=== PATIENT | male | born 1945 | race African-American/Black ===

== ENCOUNTER 2016-09-14 21:30 | Emergency (ER) | payer SELFPAY ==
[2016-09-14] MEDS ORDERED: Sodium Chloride 0.9% 500 ML ONE (22:01)
[2016-09-14] MEDS ORDERED: Acetaminophen 325 MG TAB ONE (22:01)
[2016-09-14 22:18] LABS: #Basophils 0.1 thou/uL (0.0-0.2); #Eosinphils 0.2 thou/uL (0.0-0.7); #Lymphocytes 0.7 thou/uL (1.20-3.40); #Monocytes 0.8 thou/uL (0.11-0.59); #Neutrophils 4.4 thou/uL (1.40-6.50); %Basophils 1.2 % (0.0-1.0); %Eosinophils 2.6 % (0.0-10.0); %Lymphocytes 11.9 % (21.0-51.0); %Monocytes 12.4 % (0.0-10.0); Hematocrit 40.5 % (42.0-52.0); Mean Platelet Volume 6.8 fL (7.4-10.4); Red Blood Cell (RBC) Count 4.86 mill/uL (4.70-6.10); White Blood Cell (WBC) Count 6.1 thou/uL (4.8-10.8)
[2016-09-14 22:33] LABS: Bilirubin Negative (Negative); Blood, Urine Negative (Negative); Glucose, Urine (Dipstick) Negative (Negative); Ketone, Urine Negative (Negative); Nitrite Negative (Negative); Protein, Urine (Dipstick) Negative (Neg-Trace)
[2016-09-14 22:36] LABS: Anion Gap 17 mmol/L (10-20); BUN (Urea Nitrogen) 15 mg/dL (8.4-25.7); Calc. Creatinine Clearance 0 mL/min (70-130); Carbon Dioxide 21 mmol/L (23-31); Chloride 101 mmol/L (98-107); Estimated GFR-MDRD 57
--- NOTE | 2016-09-14 23:27 | CT ---
CT BRAIN WITHOUT CONTRAST: History: Headache, fever. FINDINGS: No evidence of acute infarction, midline shift, or abnormal extraaxial fluid collections are seen. The ventricular size is appropriate and the basilar cisterns are patent. There is mucosal disease i n the paranasal sinuses. The bony calvarium is intact. IMPRESSION: No CT evidence of acute intracranial process. POS: [facility]
--- NOTE | 2016-09-14 23:36 | RAD ---
PORTABLE CHEST: Date: 09-14-16 Time: 10:03 p.m. History: Headache, fever. FINDINGS: Comparison is made with the exam of 09-28-14. The heart size is borderline. The lungs are expanded without areas of confluent areas of consolidat ion, pneumothorax or pleural effusions. IMPRESSION: No radiographic evidence of acute cardiopulmonary process. POS: [facility]
--- NOTE | 2016-09-14 23:39 | PICIS ---
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 Width 12.7 %, Range (11.5-14.5), Platelet Count 170 thou/uL, Range (130-400), *Mean Platelet Volume 6.8 - L fL, Range (7.4-10.4), %Neutrophils 71.9 %, Range (42.0-75.0), *%Lymphocytes 11.9 - L %, Range (21.0-51.0), *%Monocytes 12.4 - H %, Range (0.0-10.0), %Eosinophils 2.6 %, Range (0.0-10.0), *%Basophils 1.2 - H %, Range (0.0-1.0), #Neutrophils 4.4 thou/uL, Range (1.40-6.50), *#Lymphocytes 0.7 - L thou/uL, Range (1.20-3.40), *#Monocytes 0.8 - H thou/uL, Range (0.11-0.59), #Eosinphils 0.2 thou/uL, Range (0.0-0.7), #Basophils 0.1 thou/uL, Range (0.0-0.2). (22:20 JOHE) Urinalysis w/ Rflx Microscopic Collection DT: [place] Sep 14, 2016 22:30, Color Yellow , Range (Yellow), Clarity Clear , Range (Clear), Specific [place], Urine 1.020 , Range (1.005-1.030), pH, Urine 6.5 , Range (5.0-9.0), Leukocyte Negative , Range (Negative), Nitrite Negative , Range (Negative), Protein, Urine (Dipstick) Negative mg/dL, Range (Neg-Trace), Glucose, Urine (Dipstick) Negative mg/dL, Range (Negative), Ketone, Urine Negative mg/dL, Range (Negative), Urobilinogen 1.0 mg/dL, Range (0.2-1.0), Bilirubin Negative , Range (Negative), Blood, Urine Negative , Range (Negative). (22:38 JOHE) Basic Metabolic Panel Collection DT: [place] Sep 14, 2016 22:16, *Sodium 135 - L mmol/L, Range (136-145), Potassium 3.9 mmol/L, Range (3.5-5.1), Chloride 101 mmol/L, Range (98-107), *Carbon Dioxide 21 - L mmol/L, Range (23-31), Anion Gap 17 mmol/L, Range (10-20), BUN (Urea Nitrogen) 15 mg/dL, Range (8.4-25.7), *Creatinine 1.46 - H mg/dL, Range (0.7-1.3), Estimated GFR-MDRD 57 , Reference Range for Estimated GFR: Greater than 90, mL/min/1.73 m2 NOTE: The MDRD equation has not been validated for use, with the elderly (over 70 years of age), women, patients with, serious comorbid condition or persons with extremes of body size, muscle, mass, or nutritional status. , Glucose 97 mg/dL, Range (83-110), Calcium 9.0 mg/dL, Range (7.8-10.44). (22:40 JOHE) RBC Sedimentation Rate (ESR) Collection DT: [place] Sep 14, 2016 22:16, RBC Sedimentation Rate (ESR) 10 mm/hr, Range (0-10). (22:52 JOHE) MICROBIOLOGY: Influenza A&B Ag Screen: [id number] Collection &a-1R&a+25V*p+0X*v5516F*c152B*c15G*c2P*p-0X&a-25V&a+1R Name: Nhi Jiménez : M70 MedRec: [id number] AcctNum: [id number] Prepared: ThuSep 15, 2016 00:09 by Interface Page 10 of 12 pMD [facility] EMERGENCY RECORD DT: [place] Sep 14, 2016 22:28, See comment below , @ ER ROOM#: [id number] Source: Nasal swab Spec Desc: , *Influenza A Antigen: POSITIVE for the , * presence of , * INFLUENZA A Antigen , * - H , Influenza B Antigen: NEGATIVE for the , presence of , INFLUENZA B Antigen , The rapid Flu A&B test can distinguish between influenza A , Influenza A&B Ag Screen See comment below , and B viruses, but it does not differentiate influenza , Influenza A&B Ag Screen See comment below , subtypes. , Influenza A&B Ag Screen See comment below , Influenza A&B Ag Screen See comment below , Influenza A&B Ag Screen See comment below , Influenza A&B Ag Screen See comment below , characteristics of this device with human specimens infected , Influenza A&B Ag Screen See comment below , with the 2008 H1N1 influenza virus have not been , Influenza A&B Ag Screen See comment below , established. For example: this test cannot distinguish , Influenza A&B Ag Screen See comment below , influenza infections caused by novel H1N1 influenza A , Influenza A&B Ag Screen See comment below , viruses versus seasonal influenza A viruses. , Influenza A&B Ag Screen See comment below , , Influenza A&B Ag Screen See comment below , A negative result does not exclude influenza virus , Influenza A&B Ag Screen See comment below , infection; therefore, if more conclusive testing is desired, , Influenza A&B Ag Screen See comment below , follow up confirmatory testing is warranted., Influenza A&B Ag Screen See comment below . (22:52 [facility]) Strep Group A Screen: [id number] Collection DT: [place] Sep 14, 2016 22:28, See comment below , @ ER ROOM#: [id number] Source: Tonsil Spec Desc: PENDING, Strep A Negative CDC recommends , confirmation by , culture on all , negative , Strep negative line 1 Group A , Streptococcus rapid , screens. Please , order , Strep negative line 2 a throat culture if , clinically , &a-1R&a+25V*p+0X*h0226F*c152B*c15G*c2P*p-0X&a-25V&a+1R Name: Nhi Jiménez : M70 MedRec: [id number] AcctNum: [id number] Prepared: ThuSep 15, 2016 00:09 by Interface Page 11 of 12 pMD [facility] EMERGENCY RECORD indicated. , Rapid Strep Screen:Throat Negative . (22:52 DILMA) Lazaro: ZHANG=CLAUDE Baca, Lorin PERERA=MD Booker, Richardson SILVA=CLAUDE Holder, Keila AGUSTIN=RAYNE Dyson Kim LK[facility]=CLAUDE Garrido, Anamaria &a-1R&a+25V*p+0X*[id number]*c152B*c15G*c2P*p-0X&a-25V&a+1R Name: Nhi Jiménez : M70 MedRec: [id number] AcctNum: [id number] Prepared: ThuSep 15, 2016 00:09 by Interface Page 12 [facility] 12 [facility]
== END 2016-09-14 23:30 | disposition home or self-care (01) ==
LOC: NAV ERS 21:30
DX: J11.1 Influenza due to unidentified influenza virus with other respiratory manifestations (principal); J06.9 Acute upper respiratory infection, unspecified; I10 Essential (primary) hypertension
CPT/HCPCS: 36415; 70450; 71010; 80048; 81003; 85025; 85652; 87430; J7050

== ENCOUNTER 2016-12-02 20:05 | Emergency (ER) | payer SELFPAY ==
[2016-12-02] MEDS ORDERED: Ibuprofen 200 MG TAB ONE (20:37)
== END 2016-12-02 20:52 | disposition home or self-care (01) ==
LOC: NAV ERS 20:05
DX: M54.5 Low back pain (principal); I10 Essential (primary) hypertension
CPT/HCPCS: 99283

== ENCOUNTER 2019-05-14 11:56 | Emergency (ER) | payer SELFPAY ==
[2019-05-14] MEDS ORDERED: traMADol HCl 50 MG TAB ONE (13:09)
--- NOTE | 2019-05-14 14:34 | RAD ---
XR Hip Lt 2-3 View: 05/14/2019 12:30 PM CLINICAL INDICATION: Pain COMPARISON: None. FINDINGS: Fracture:No fracture. Arthropathy:There is moderate left hip joint osteoarthritis Incidental findings:Multiple metallic clips, vascular calcifications, and phleboliths. IMPRESSION: 1. No acute osseous abnormality.
== END 2019-05-14 13:12 | disposition home or self-care (01) ==
LOC: NAV ERS 11:56
DX: M70.62 Trochanteric bursitis, left hip (principal); I10 Essential (primary) hypertension; Z85.46 Personal history of malignant neoplasm of prostate

== ENCOUNTER 2020-02-10 11:48 | Emergency (ER) | payer MEDICARE, OTHER ==
[2020-02-12 11:58] LABS: SARS-CoV-2 MS2 Positive; SARS-CoV-2 N Gene Positive; SARS-CoV-2 S Gene Positive; SARS-CoV-2 orf1ab Positive
== END 2020-02-10 12:12 | disposition home or self-care (01) ==
LOC: NAV ERS 11:48
DX: U07.1 COVID-19 (principal); I10 Essential (primary) hypertension
CPT/HCPCS: 87635; 99283; U0003

== ENCOUNTER 2020-02-14 16:37 | Emergency (ER) | payer MEDICARE, OTHER ==
[2020-02-14] MEDS ORDERED: Ibuprofen 200 MG TAB ONE (16:52)
[2020-02-14 17:47] LABS: #Lymphocytes 1.1 thou/uL (1.20-3.40); #Monocytes 0.4 thou/uL (0.11-0.59); #Neutrophils 4.2 thou/uL (1.40-6.50); %Basophils 0.6 % (0.0-1.0); %Eosinophils 0.1 % (0.0-10.0); %Lymphocytes 19.7 % (21.0-51.0); %Monocytes 6.1 % (0.0-10.0); %Neutrophils 73.4 % (42.0-75.0); Mean Corpuscular HGB CONC 31.1 g/dL (32.0-36.0); Mean Corpuscular Hemoglobin 27.2 pg (27.0-31.0); Mean Corpuscular Volume 87.4 fL (78.0-98.0); Mean Platelet Volume 8.5 fL (7.4-10.4); Platelet Count 85 thou/uL (130-400); RBC Distribution Width 12.9 % (11.5-14.5); Red Blood Cell (RBC) Count 4.78 mill/uL (4.70-6.10); White Blood Cell (WBC) Count 5.7 thou/uL (4.8-10.8)
[2020-02-14] MEDS ORDERED: Ventolin HFA Inhaler 60 PUFF INHALER ONE (17:49)
[2020-02-14 18:00] LABS: ALT (SGPT) 23 U/L (8-55); AST (SGOT) 32 U/L (5-34); Alkaline Phosphatase 42 U/L (40-110); Anion Gap 17 mmol/L (10-20); BUN (Urea Nitrogen) 12 mg/dL (8.4-25.7); Bilirubin, Total 0.4 mg/dL (0.2-1.2); CK (CPK) 215 U/L (30-200); Calc. Creatinine Clearance 0 mL/min (70-130); Carbon Dioxide 21 mmol/L (23-31); Chloride 101 mmol/L (98-107); Estimated GFR-MDRD 76; Globulin 3.3 g/dL (2.4-3.5); Glucose 110 mg/dL (83-110); Potassium 3.9 mmol/L (3.5-5.1); Protein, Total 7.3 g/dL (5.8-8.1); Sodium 135 mmol/L (136-145)
--- NOTE | 2020-02-14 18:04 | RAD ---
Chest AP view INDICATION: Chest tightness with history of positive Covid 19 testing COMPARISON: Prior exam dated September 14, 2016 FINDINGS: Lungs: There are patchy airspace opacities involving both lower lobes consistent with pneumonia. Cardiac silhouette: There is stable mild cardiomegaly Pulmonary vasculature: Normal Pleural spaces: No pleural effusion or pneumothorax is demonstrated. Upper abdomen: No abnormality seen. Osseous structures: No acute osseous abnormality. Additional findings: None. IMPRESSION: Bilateral lower lobe pneumonia. Stable cardiomegaly without evidence of cardiac decompensation.
[2020-02-14] MEDS ORDERED: Sodium Chloride 0.9% 100 ML ONE (18:56)
[2020-02-14] MEDS ORDERED: cefTRIAXone\\ROCEPHIN 1 GM VIAL ONE (18:56)
== END 2020-02-14 19:42 | disposition short-term general hospital (02) ==
LOC: NAV ERS 16:37
DX: U07.1 COVID-19 (principal); J12.89 Other viral pneumonia; I10 Essential (primary) hypertension
CPT/HCPCS: 71045; 80053; 82550; 83605; 84484; 85025; 85379; 87040; 87070; 87205; 96365; J0696; J3490